=== PATIENT | female | born 1995 | race Caucasian/White ===

== ENCOUNTER 2016-11-25 00:03 | Inpatient (IN) ==
[2016-11-25] MEDS ORDERED: BUTORPHANOL 2 MG/ML VIAL IV PRN (00:16)
[2016-11-25] MEDS ORDERED: ACETAMINOPHEN 325 MG TABLET PO PRN (00:16)
[2016-11-25] MEDS: LACTATED RINGERS 1,000 ML IV SCH ×4 (00:36→21:47)
[2016-11-25] MEDS: OXYTOCIN/LR 20 UNIT/1,000 ML BAG IV SCH ×2 (01:08→21:12)
[2016-11-25 01:58] LABS: Bilirubin,Total 0.4 MG/DL (0.2-1.0); Calcium 9.3 MG/DL (8.5-10.1); Osmolality,Calculated 272.7 MOS/KG (273-304); Potassium 4.1 MMOL/L (3.5-5.1); Total Protein 6.2 G/DL (6.4-8.3)
[2016-11-25 02:18] LABS: INR 0.9; PT Patient Result 9.6 SECS; Partial Thromboplastin Time 29.7 SECS (0-40)
[2016-11-25 02:25] LABS: Basophils % 0.2 % (0.0-0.8); Eosinophils # 0.1 10*3/uL (0.0-0.87); Eosinophils % 0.5 % (0.00-10.9); Hematocrit 35.4 VOL% (35.7-47.0); Hemoglobin 12.3 GM/DL (12.0-16.0); Immature Granulocytes % 1.5 %; Immature Granulocytes Absolute 0.23 #; Lymphocytes # 2.1 10*3/uL (1.4-4.0); Lymphocytes % 14.1 % (21.3-54.2); Mean Corpuscular HGB Conc 34.7 GM/DL (32-36); Mean Corpuscular Hemoglobin 29 PG (27-34); Mean Corpuscular Volume 82.7 FL (87-102); Mean Platelet Volume 9.5 FL (9.6-12.0); Monocytes # 1.1 10*3/uL (0.11-0.8); Monocytes % 7.2 % (1.7-12.7); Neutrophils # 11.5 10*3/uL (1.4-7.4); Neutrophils % 76.5 % (38.7-73.9); Platelet Count 284 T/CUMM (130-400); Red Blood Count 4.28 MC/CUMM (3.8-5.5); Red Cell Distribution Width 13.6 % (9.3-17.3); White Blood Count 15.1 T/CUMM (4-12)
[2016-11-25] MEDS ORDERED: SODIUM CHLORIDE 0.9% 0 ML IV ONE (09:26)
[2016-11-25] MEDS ORDERED: AMPICILLIN 2,000 MG VIAL ONE (09:26)
[2016-11-25] MEDS ORDERED: MEPERIDINE 50 MG/1 ML VIAL ONE (09:26)
[2016-11-25] MEDS ORDERED: LIDOCAINE 1% 50 ML VIAL ONE (09:26)
[2016-11-25 09:59] LABS: Hepatitis B Surface Ag Quant < 0.00 Index; Hepatitis B Surface Ag Result Negative (Negative)
[2016-11-25] MEDS ORDERED: PROMETHAZINE 25 MG/1 ML VIAL IM ONE (11:30)
[2016-11-25] MEDS ORDERED: hydrOXYzine HCL 25 MG/1 ML VIAL IM PRN (11:30)
[2016-11-25] MEDS ORDERED: FAMOTIDINE 20 MG/2 ML VIAL IV ONE (11:30)
[2016-11-25] MEDS ORDERED: CITRIC ACID/SODIUM CITRATE 30 ML UDCUP PO ONE (11:30)
[2016-11-25] MEDS ORDERED: ePHEDrine 50 MG/ML AMP IV PRN (11:30)
[2016-11-25] MEDS ORDERED: ONDANSETRON 4 MG/2 ML VIAL IV ONE (11:30)
[2016-11-25] MEDS ORDERED: diphenhydrAMINE 50 MG/1 ML VIAL IV PRN ×2 (11:30)
[2016-11-25] MEDS: fentaNYL 2 MCG/ROPIV 0.2% EPID 150 ML EPIDURAL SCH ×2 (12:49→22:09)
[2016-11-25] MEDS ORDERED: hydrOXYzine HCL 50 MG/1 ML VIAL IM PRN (14:35)
[2016-11-25 14:40] LABS: Apearance,Urine CLEAR (Clear); Bilirubin,Urine Negative (Negative); Blood, Urine Small mg/dL (Negative); Glucose,Urine (UA) Negative (Negative); Ketones,Urine 80 mg/dL (Negative); Mucus,Urine Occasional /LPF (Occasional); Nitrite,Urine Negative (Negative); Protein,Urine Negative; RBC,Urine 7 /HPF (0-4); Squamous Epithelial Cell,Urine Occasional /HPF (0-10); Urine Color Yellow (Yellow); Urine Specific Gravity 1.012 (1.001-1.035); Urine Urobilinogen < 2.0 EU/DL (0.2-1.0); WBC,Urine 2 /HPF (0-6)
[2016-11-25] MEDS: ONDANSETRON 4 MG/2 ML VIAL IV PRN (20:02)
[2016-11-25] MEDS: AMPICILLIN INJ 2,000 MG in SODIUM CHLORIDE 0.9% 100 ML IV SCH (21:11)
[2016-11-25] MEDS: fentaNYL 100 MCG/2 ML VIAL IV ONE (22:09)
[2016-11-25] MEDS ORDERED: fentaNYL 100 MCG/2 ML VIAL IV ONE (22:09)
[2016-11-26] MEDS ORDERED: CARBOPROST TROMETHAMINE 250 MCG/ML AMP IM ONE ×2 (00:46→03:20)
[2016-11-26] MEDS ORDERED: miSOPROStol 200 MCG TABLET ONE (00:46)
[2016-11-26] MEDS ORDERED: LIDOCAINE 1% 50 ML VIAL ONE (00:46)
[2016-11-26] MEDS ORDERED: miSOPROStol 200 MCG TABLET RECTAL ONE (03:22)
--- NOTE | 2016-11-26 04:10 | History and Physical Update ---
History and Physical Update - History and Physical H&P was reviewed, the patient examined and there: are no changes in the patients condition since last H&P was completed. - Dictation Physical: refer to scanned H&P - Physical Exam Mental Status: alert and oriented Heart: regular rate and rhythm Lung: clear to auscultation Abdomen: within normal limits Vitals: within normal limits History and Physical Changes: at 37 wks with significant elevations in BPs the past 2 wks admitted on for induction. testing and PIH evaluations have been ok. otherwise without complications. GBS negative.
[2016-11-26] MEDS: AMPICILLIN INJ 2,000 MG in SODIUM CHLORIDE 0.9% 100 ML IV SCH (04:15)
--- NOTE | 2016-11-26 04:17 | Operative Note ---
Date of procedure: 11/26/16 Pre-op diagnosis: 37 wks;gestational HTN Post-op diagnosis: same Procedure: ; 2nd degree MLE with 3rd degree extension. Patient progressed to complete and pushing with labor epidural and Pitocin augmentation and delivered a viable 8#2oz male over 2nd degree MLE with 3rd degree extension. Tight nuchal cord x 2 was noted. 1st loop clamped and cut , then attempted to reduce the 2nd loop and the cord broke. Baby was immediately delivered and cord was pinched and baby was taken to warmer and cord clamp was placed. Cord blood was collected and placenta was delivered intact. Initial uterine atony resolved after IV Pitocin, 800mcg of Cytotec and IM Hemabate x 1 dose. Transverse perineus was carefully reapproximated with 2-0 chromic suture in the usual fashion with figure of 8 stitches. Second degree MLE was repaired in the usual fashion with 2-0 and 3-0 chromic with good approximation and hemostasis. Fundus is firm. Estimated blood loss 300 mL. Complications none. Patient is stable and the baby is stable. Anesthesia: epidural, other (local ) Surgeon / Physician: Rosie Jenkins Estimated blood loss: other (500cc) Specimens: other (placenta to path; cord blood to lab) Condition: stable Disposition: no change Results - Labs CBC & BMP: 11/25/16 00:47 11/25/16 00:47 Discharge Plan - Discharge Medications No Action Pediatric Multivitamin No.101 [Gummy] 1 capsule PO DAILY - Follow Up or Referral - Forms/Instructions
[2016-11-26] MEDS ORDERED: OXYTOCIN/LR 20 UNIT/1,000 ML BAG IV ONE (04:49)
[2016-11-26] MEDS ORDERED: oxyCODONE/ACETAMINOPHEN 5-325 MG TABLET PO PRN (05:47)
[2016-11-26] MEDS ORDERED: BENZOCAINE 20%/MENTHOL 0.5% SPRAY 56 GM CAN TOP PRN (05:55)
[2016-11-26] MEDS: fentaNYL 100 MCG/2 ML VIAL IV ONE (05:56)
[2016-11-26] MEDS: ONDANSETRON 4 MG/2 ML VIAL IV PRN (06:02)
[2016-11-26] MEDS ORDERED: MEPERIDINE 50 MG/1 ML VIAL IV ONE (06:16)
[2016-11-26] MEDS ORDERED: MEPERIDINE 25 MG/1 ML VIAL ONE (06:22)
--- NOTE | 2016-11-26 08:37 | Anesthesia Post-Op ---
Anesthesia Post OP - Post Ansesthetic Evaluation Patient seen in post op: Yes Resp: within normal limits CV: within normal limits Mental: within normal limits Temp: within normal limits [id number]: within normal limits Nausea and Vomiting: within normal limits Pain: within normal limits
[2016-11-26] MEDS: DOCUSATE SODIUM 100 MG CAPSULE PO SCH ×2 (08:49→20:09)
[2016-11-26] MEDS: oxyCODONE/ACETAMINOPHEN 5-325 MG TABLET PO PRN ×2 (08:51→14:37)
[2016-11-26 11:12] LABS: Basophils % 0.1 % (0.0-0.8); Hematocrit 28.3 VOL% (35.7-47.0); Immature Granulocytes % 1.3 %; Immature Granulocytes Absolute 0.31 #; Lymphocytes # 1.6 10*3/uL (1.4-4.0); Lymphocytes % 6.6 % (21.3-54.2); Mean Corpuscular HGB Conc 33.9 GM/DL (32-36); Mean Corpuscular Hemoglobin 28 PG (27-34); Mean Corpuscular Volume 83.7 FL (87-102); Monocytes # 1.5 10*3/uL (0.11-0.8); Monocytes % 6.2 % (1.7-12.7); Neutrophils # 20.5 10*3/uL (1.4-7.4); Neutrophils % 85.8 % (38.7-73.9); Red Cell Distribution Width 13.8 % (9.3-17.3)
[2016-11-26 11:33] LABS: White Blood Count 23.9 T/CUMM (4-12)
[2016-11-26 11:34] LABS: Hemoglobin 9.6 GM/DL (12.0-16.0); Platelet Count 218 T/CUMM (130-400); Red Blood Count 3.38 MC/CUMM (3.8-5.5)
[2016-11-26 11:41] LABS: Hypochromasia Slight; Lymphocytes 10 % (20-55); Microcytosis Slight; Platelet Estimate Normal; Segmented Neutrophils 84 % (50-85); Total Cells Counted 100
[2016-11-26] MEDS: IBUPROFEN 800 MG TABLET PO PRN (17:51)
[2016-11-27] MEDS: oxyCODONE/ACETAMINOPHEN 5-325 MG TABLET PO PRN ×2 (07:36→17:56)
[2016-11-27] MEDS: MULTIVITAMIN (PRENATAL) TABLET PO SCH (09:39)
[2016-11-27] MEDS: DOCUSATE SODIUM 100 MG CAPSULE PO SCH ×2 (09:39→21:08)
[2016-11-27] MEDS: IBUPROFEN 800 MG TABLET PO PRN (14:41)
--- NOTE | 2016-11-27 14:56 | OB/GYN Progress Note ---
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: Subj Interval history: no complaints Exam BRIDGE MAINTAINER - Constitutional Vitals: Vital Signs Temp Pulse Resp BP BP Pulse Ox 11/27/16 11:26 97.2 F L 97 H 20 128/82 98 11/27/16 07:38 97.6 F 82 20 109/69 98 11/27/16 06:00 16 11/27/16 04:00 97.3 F L 82 18 115/63 97 11/27/16 00:00 97.4 F L 84 20 110/70 96 11/26/16 19:40 97.1 F L 107 H 20 119/72 98 11/26/16 16:00 97.9 F 97 H 20 113/70 95 General appearance: no acute distress - Antepartum / Post Post Exam Abdomen obstetrics: Present: bowel sounds normal Vagina: Present: normal moisture Uterus exam: Present: normal size, normal contour Anus/Rectum: Present: normal perianal skin - Head Head exam: Present: normocephalic - Eye Pupils: Present: normal accommodation - ENT ENT exam: Present: normal exam - Neck Neck exam: Present: normal inspection - Respiratory Respiratory exam: Present: clear to auscultation bilaterally - Cardiovascular Cardiovascular exam: Present: regular rate and rhythm - GI/Abdominal GI/Abdominal exam: Present: normal bowel sounds, soft - Extremities Exam Extremities exam: Present: normal inspection - Back Exam Back exam: Present: normal inspection - Neurological Exam Neurological exam: Present: alert, oriented X3 - Psychiatric Psychiatric exam: Present: normal affect, normal mood - Skin Skin exam: Present: normal color, warm Results - Labs CBC & BMP: 11/26/16 11:07 11/25/16 00:47
[2016-11-27] MEDS ORDERED: MAGNESIUM HYDROXIDE SUSP 30 ML UDCUP PO ONE (19:38)
[2016-11-28 04:55] VITALS: BP 134/84
--- NOTE | 2016-11-28 07:39 | Discharge Summary ---
Hospital Course - Hospital Course Hospital Course: Pt admitted for induction at 37 wks for gestational HTN. She delivered the following morning without complication. Her course has been unremarkable except that she's done very well. Specialty Discharge - Follow Up or Referrals Follow up with: Rosie Jenkins DO [Physician] - Discharge Plan - Discharge Data Disposition: Disch To Home/Self Care Condition at Discharge: Stable Discharge Diet: regular diet Activity: other (pelvic rest x 6 wks) Hygiene: may shower Weight Bearing at Discharge: full weight bearing Contact your physician if you experience:: fever over 101, Difficulty voiding, Redness or swelling, Nausea/Vomiting, Shortness of breath, Bleeding, pain uncontrolled by pain medications - Discharge Medications New oxyCODONE/ACETAMINOPHEN 5-325 [Percocet 5-325] 1 tablet PO Q4H PRN #30 tablet PRN Reason: Pain Moderate (4-7) Ibuprofen Tab [Motrin Tab] 800 mg PO Q6H PRN #30 tablet PRN Reason: Pain No Action Pediatric Multivitamin No.101 [Gummy] 1 capsule PO DAILY - Follow Up or Referral Follow Up: Rosie Jenkins DO [Physician] - (6 wks ) - Forms/Instructions Instructions: Depression (GEN), Perineal Care (DC), Vaginal Delivery (DC), Bleeding (DC) Exam - Constitutional Vitals: Period Temp Pulse Resp BP Sys/Parikh Pulse Ox Last 24 Hr 96.9 F-98.6 F 82-107 18-20 109-138/69-84 98-100 General appearance: no acute distress, over weight - Head Head exam: Present: normal inspection, normocephalic - Eye Eye exam: Present: EOMI - Respiratory Respiratory exam: Present: clear to auscultation bilaterally - Cardiovascular Cardiovascular exam: Present: regular rate and rhythm - GI/Abdominal GI/Abdominal exam: Present: other (fundus firm, nontender) - Extremities Exam Extremities exam: Present: normal inspection - Neurological Exam Neurological exam: Present: alert, oriented X3 - Psychiatric Psychiatric exam: Present: normal affect, normal mood - Skin Skin exam: Present: normal color, warm DS: Provider Date of admission: 11/25/16 00:16 Primary care physician: Valerie Strong Attending physician on admission: Rosie Jenkins DO Consults: 11/25/16 00:16 Consult to Anesthesiology [CONS] Routine Consulting Provider: Reason for Anesthesiology: Epidural Consult Comment: Epidural for pain managment 11/26/16 21:17 Consult to Hot Strip Finisher [CONS] Routine Consult Hot Strip Finisher: Breast Feeding Discharging clinician: Rosie Jenkins DO Expected date of discharge: 11/28/16
[2016-11-28] MEDS: DOCUSATE SODIUM 100 MG CAPSULE PO SCH (08:39)
[2016-11-28] MEDS: MULTIVITAMIN (PRENATAL) TABLET PO SCH (08:39)
--- NOTE | 2016-11-29 11:16 | Pathology Report from [facility] ---
[facility] ACCESSION # : [id number] PATIENT NAME : Paula Ramsey ORDERING DR : FEDE SHU DO CLINICAL HX: IUP @ 37 wks gestation, HTN POST-OP DX: Same SPECIMEN INFO: Placenta GROSS DESCRIPTION: Received fresh labeled with the patients name and consists of a 409 gram placenta which measures 18.5 x 19.5 x 2.5 cm. membranes are pink-begum and translucent. The umbilical cord measures 22.0 cm, contains three vessels and is centrally inserted. surface is blue-lieberman and intact with scattered areas of subchorionic fibrin noted measuring 4.0 x 2.2 cm. The maternal surface displays mild disrupted red-lieberman cotyledons with diffuse calcifications seen. Sectioning reveals no gross abnormalities. Sections submitted: A membranes and cord, B and maternal surfaces. DIAGNOSIS FOR PAULA RAMSEY: PLACENTA, MEMBRANES, UMBILICAL CORD: Focal placental infarction, mild intervillous blood, focal dystrophic calcification. Tri-vessel umbilical cord. Membranes with focal chronic inflammation and attached blood. COLLECTED DATE: 11/28/2016 [facility] REPORT DATE: 11/29/2016 ELECTRONICALLY SIGNED BY: Megan Bocanegra M.D. 11/29/2016 - 8:39:58 YVETTE
== END 2016-11-28 11:40 | disposition home or self-care (01) | DRG 542 ==
LOC: N.LDOUT 00:03 → N.LD 00:07 → N.OB 11-26 05:46 → N.LD 11-27 19:32
PROVIDERS: ADMIT Obstetrics & Gynecology; ATTEND Obstetrics & Gynecology

== ENCOUNTER 2018-09-17 05:54 | Inpatient (IN) ==
[2018-09-17] MEDS ORDERED: ONDANSETRON 4 MG/2 ML VIAL IV PRN (06:08)
[2018-09-17] MEDS ORDERED: BUTORPHANOL 2 MG/ML VIAL IV PRN (06:08)
[2018-09-17] MEDS: LACTATED RINGERS 1,000 ML IV SCH ×3 (06:25→17:42)
[2018-09-17] MEDS ORDERED: OXYTOCIN/LR 20 UNIT/1,000 ML BAG IV SCH (06:30)
[2018-09-17 06:50] LABS: Albumin 2.6 G/DL (3.4-5.0); Bilirubin,Total 0.4 MG/DL (0.2-1.0); Calcium 9.3 MG/DL (8.5-10.1); Osmolality,Calculated 271.7 MOS/KG (273-304); Total Protein 5.9 G/DL (6.4-8.3)
[2018-09-17 06:51] LABS: Basophils % 0.2 % (0.0-0.8); Eosinophils # 0.1 10*3/uL (0.0-0.87); Eosinophils % 0.6 % (0.00-10.9); Hematocrit 37.8 VOL% (35.7-47.0); Hemoglobin 12.4 GM/DL (12.0-16.0); Immature Granulocytes % 0.9 %; Lymphocytes # 1.8 10*3/uL (1.4-4.0); Lymphocytes % 15.3 % (21.3-54.2); Mean Corpuscular HGB Conc 32.8 GM/DL (32-36); Mean Corpuscular Volume 81.5 FL (87-102); Mean Platelet Volume 9.3 FL (9.6-12.0); Monocytes % 7.4 % (1.7-12.7); Neutrophils % 75.6 % (38.7-73.9); Platelet Count 242 T/CUMM (130-400); Red Blood Count 4.64 MC/CUMM (3.8-5.5); Red Cell Distribution Width 14.2 % (9.3-17.3); White Blood Count 11.6 T/CUMM (4-12)
[2018-09-17] MEDS: AMPICILLIN INJ 2,000 MG in SODIUM CHLORIDE 0.9% 100 ML IV SCH ×3 (07:21→21:23)
[2018-09-17] MEDS ORDERED: FAMOTIDINE 20 MG/2 ML VIAL IV ONE (11:16)
[2018-09-17] MEDS ORDERED: PROMETHAZINE 25 MG/1 ML VIAL IM ONE (11:16)
[2018-09-17] MEDS ORDERED: diphenhydrAMINE 50 MG/1 ML VIAL IV PRN (11:16)
[2018-09-17] MEDS ORDERED: ePHEDrine 50 MG/ML AMP IV PRN (11:16)
[2018-09-17] MEDS ORDERED: NALOXONE 0.4 MG/ML VIAL IV PRN (11:16)
[2018-09-17] MEDS ORDERED: hydrOXYzine HCL 25 MG/1 ML VIAL IM PRN (11:16)
[2018-09-17] MEDS ORDERED: CITRIC ACID/SODIUM CITRATE 30 ML UDCUP PO ONE (11:16)
[2018-09-17] MEDS: fentaNYL 2 MCG/ROPIV 0.2% EPID 100 ML EPIDURAL SCH ×2 (11:56→20:26)
[2018-09-17 13:04] LABS: Apearance,Urine CLEAR (Clear); Bilirubin,Urine Negative (Negative); Blood, Urine Negative (Negative); Glucose,Urine (UA) Negative (Negative); Ketones,Urine Negative (Negative); Mucus,Urine Occasional /LPF (Occasional); Nitrite,Urine Negative (Negative); Protein,Urine Negative; RBC,Urine <1 /HPF (0-4); Squamous Epithelial Cell,Urine Occasional /HPF (0-10); Urine Color Yellow (Yellow); Urine Urobilinogen < 2.0 EU/DL (0.2-1.0)
[2018-09-17] MEDS ORDERED: miSOPROStol 200 MCG TABLET ONE (23:24)
[2018-09-17] MEDS ORDERED: TRANEXAMIC ACID 1,000 MG/10 ML VIAL ONE (23:24)
[2018-09-17] MEDS ORDERED: METHYLERGONOVINE 0.2 MG/1 ML AMP ONE (23:24)
[2018-09-17] MEDS ORDERED: CARBOPROST TROMETHAMINE 250 MCG/ML AMP IM ONE (23:25)
[2018-09-18] MEDS ORDERED: IBUPROFEN 800 MG TABLET PO PRN (02:52)
[2018-09-18] MEDS ORDERED: BENZOCAINE 20%/MENTHOL 0.5% SPRAY 56 GM CAN TOP PRN (02:55)
[2018-09-18] MEDS ORDERED: IBUPROFEN 800 MG TABLET ONE (03:15)
[2018-09-18] MEDS: DOCUSATE SODIUM 100 MG CAPSULE PO SCH ×2 (08:59→21:19)
[2018-09-18 20:04] LABS: Basophils % 0.3 % (0.0-0.8); Eosinophils # 0.1 10*3/uL (0.0-0.87); Eosinophils % 0.9 % (0.00-10.9); Hematocrit 32.9 VOL% (35.7-47.0); Immature Granulocytes % 1.2 %; Immature Granulocytes Absolute 0.13 #; Lymphocytes # 2.1 10*3/uL (1.4-4.0); Lymphocytes % 19.5 % (21.3-54.2); Mean Corpuscular HGB Conc 31.6 GM/DL (32-36); Mean Corpuscular Volume 83.7 FL (87-102); Mean Platelet Volume 9.6 FL (9.6-12.0); Monocytes % 8.2 % (1.7-12.7); Neutrophils % 69.9 % (38.7-73.9); Platelet Count 208 T/CUMM (130-400); Red Blood Count 3.93 MC/CUMM (3.8-5.5); Red Cell Distribution Width 14.2 % (9.3-17.3); White Blood Count 10.9 T/CUMM (4-12)
[2018-09-18 20:06] LABS: Hemoglobin 10.4 GM/DL (12.0-16.0)
[2018-09-19] MEDS: DOCUSATE SODIUM 100 MG CAPSULE PO SCH (09:41)
[2018-09-19 11:41] VITALS: BP 131/91
== END 2018-09-19 13:00 | disposition home or self-care (01) | DRG 807 ==
LOC: N.LDOUT 05:54 → N.LD 05:57 → N.OB 09-18 02:20
PROVIDERS: ADMIT Obstetrics & Gynecology; ATTEND Obstetrics & Gynecology